=== PATIENT | male | born 1995 | race Two or more races ===

== ENCOUNTER 2020-10-15 23:29 | Emergency (ER) | payer OTHER ==
[~2020-10-15] VITALS: Ht 180.3 cm; Wt 117.9 kg
[2020-10-15 23:33] VITALS: BP 163/77
[2020-10-16] MEDS ORDERED: IBUPROFEN 800 MG TAB PO ONE (02:15)
== END 2020-10-16 02:24 | disposition home or self-care (01) ==
LOC: ER 23:30
DX: S83.92XD Sprain of unspecified site of left knee, subsequent encounter (principal); X58.XXXD Exposure to other specified factors, subsequent encounter
CPT/HCPCS: 29505; 73562

== ENCOUNTER 2020-10-25 17:07 | Emergency (ER) | payer MEDICAID, OTHER ==
[~2020-10-25] VITALS: Ht 180.3 cm; Wt 122.5 kg
[2020-10-25 17:19] VITALS: BP 127/86
== END 2020-10-25 19:41 ==
LOC: ER 17:07
DX: S61.011A Laceration without foreign body of right thumb without damage to nail, initial encounter (principal); F17.210 Nicotine dependence, cigarettes, uncomplicated; F12.10 Cannabis abuse, uncomplicated; Z53.29 Procedure and treatment not carried out because of patient's decision for other reasons; W22.8XXA Striking against or struck by other objects, initial encounter; Y93.89 Activity, other specified; Y92.89 Other specified places as the place of occurrence of the external cause; Y99.8 Other external cause status

== ENCOUNTER 2024-09-17 08:56 | Emergency (ER) | payer MEDICAID, OTHER ==
[~2024-09-17] VITALS: Ht 180.3 cm; Wt 129.0 kg
[2024-09-17 09:40] VITALS: PULSE 94; RESP 16; O2SAT 95
--- NOTE | 2024-09-17 10:07 | ED.PDOC ---
Musculoskeletal HPI Comments 29 year old male presents to the ED with chief complaint of left ankle pain. Patient reports that he has been experiencing left sided ankle pain and swelling after twisting his ankle unloading things in his home last night. Patient relays that he is unable to bear weight onto his foot and needs to utilize crutches. Patient denies any numbness, weakness, or further injuries. Chief Complaint: Lower Extremity Time Seen by MD: 10:05 Primary Care Provider: NONE Reviewed Notes: Nurses Notes, Medications, Allergies Allergies: Coded Allergies: Penicillins (Verified Allergy, Unknown, 10/15/20) Home Meds Active Scripts Ibuprofen Micronized (MOTRIN TABLET) 600 Mg Tb, 600 MG PO TID PRN for 5 Days, #15 TAB *Black box warning-NSAIDS can increase risk of CT & hypertension, GI irritation, ulceration, bleed, perferation. Do not use post cardiac surgery. Use short duration/lowest effective dose. Prov:VEL GE MD 09/17/24 Information Source: Patient Mode of Arrival: Ambulatory Location: Left Extremity Location: Ankle Timing: Hours Prehospital treatment: None Severity: Moderate Able to Move Extremity: Yes Bear Weight: No Pain: Moderate Mechanism: Twisting Circumstances: Accident Onset of Symptoms: After Trauma Symptoms: Swelling, Pain DVT Risk Factors: NONE Last Tetanus: Unknown Past Medical History PAST MEDICAL HISTORY: Denies Surgical History: Denies all surgeries Family History Family History: Reviewed,noncontributory to illness, Unknown Social History Smoker: Cigarettes, Less Than 1 Pack/Day Alcohol: Occasionally Drugs: Marijuana Lives In: Home Constitutional: denies: chills, diaphoresis, fatigue, fever, malaise, sweats, weakness, others EENTM: denies: blurred vision, double vision, ear bleeding, ear discharge, ear drainage, ear pain, ear ringing, eye pain, eye redness, hearing loss, mouth pain, mouth swelling, nasal discharge, nose bleeding, nose congestion, nose pain, photophobia, tearing, throat pain, throat swelling, voice changes, others Respiratory: denies: cough, hemoptysis, orthopnea, SOB at rest, shortness of breath, SOB with excertion, stridor, wheezing, others Cardiovascular: denies: chest pain, dizzy spells, diaphoresis, Dyspnea on exertion, edema, irregular heart beat, left arm pain, lightheadedness, p alpitations, PND, syncope, others Gastrointestinal: denies: abdomen distended, abdominal pain, blood streaked bowels, constipated, diarrhea, dysphagia, difficulty swallowing, hematemesis, melena, nausea, poor appetite, poor fluid intake, rectal bleeding, rectal pain, vomiting, others Genitourinary: denies: burning, dysuria, flank pain, frequency, hematuria, incontinence, penile discharge, penile sore, pain, testicle pain, testicle swelling, urgency, others Neurological: denies: dizziness, fainting, headache, left sided numbness, left sided weakness, numbness, paresthesia, pre-existing deficit, right sided numbness, right sided weakness, seizure, speech problems, tingling, tremors, weakness, others Musculoskeletal: reports: others (Left ankle pain and swelling); denies: back pain, gout, joint pain, joint swelling, muscle pain, muscle stiffness, neck pain Integumetry: denies: bruises, change in color, change in hair/nails, dryness, laceration, lesions, lumps, rash, wounds, others Allergic/Immunocompromised: denies: Difficulty Healing, Frequent Infections, Hives, Itching, others Hematologic/Lymphatic: denies: anemia, blood clots, easy bleeding, easy bruising, swollen glands, others Endocrine: denies: excessive hunger, excessive sweating, excessive thirst, excessive urination, flushing, intolerance to cold, intolerance to heat, unexplained weight gain, unexplained weight loss, others Psychiatric: denies: anxiety, bipolar disorder, depression, hopeless, panic disorder, schizophrenia, sleepless, suicidal, others All Other Systems: Reviewed and Negative Physical Exam General Appearance: Moderate Distress, Normal HEENT: Normal ENT Inspection, PERRL/EOMI Neck: Full Range of Motion, Non-Tender, Normal, Normal Inspection Respiratory: Chest Non-Tender, Lungs Clear, No Accessory Muscle Use, No Respiratory Distress, Normal Breath Sounds Cardiovascular: No Edema, No JVD, No Murmur, No Gallop, Normal Peripheral Pulses, Regular Rate/Rhythm Breast Exam: Deferred Gastrointestinal: No Organomegaly, Non Tender, No Pulsatile Mass, Normal Bowel Sounds, Soft Genitalia: Deferred Pelvic: Deferred Rectal: Deferred Extremities: No calf tenderness, Normal capillary refill, Non-tender, No pedal edema, Swelling (Left ankle) Musculoskeletal : Apperance: Normal Neurologic: Alert, director of vital statistics II-XII nml as Tested, No Motor Deficits, Normal Affect, Normal Mood, No Sensory Deficits Cerebellar Function: NOT DONE Reflexes: NOT DONE Skin: Dry, Normal Color, Warm Peripheral Pulses: 3+ Radial (R), 3+ Radial (L) Lymphatic: No Adenopathy Was a procedure done? Was a procedure done?: No Differential Diagnosis EXT Differential Diagnosis: Fracture, Sprain, Dislocation, Contusion, Strain X-Ray, Labs, Meds, VS Vital Signs Date Time Temp Pulse Resp B/P (MAP) Pulse Ox O2 Delivery O2 Flow Rate FiO2 09/17/24 09:40 94 16 95 Room Air* 0 21 09/17/24 09:40 94 18 137/76 (96) 95 09/17/24 09:06 97.5 102 15 146/86 (106) 97 97.5 Current Medications Medications (Trade) Dose Ordered Sig/Reanna Route Start Time Stop Time Status Last Admin Acetaminophen/ Hydrocodone Bitart (Spencer 10/325MG Tab) 1 tab ONCE ONCE PO 09/17/24 10:30 09/17/24 10:31 DC 09/17/24 10:34 Left Ankle XR: 1. No acute fracture or dislocation of the left ankle. The mortise is intact. 2. Diffuse soft tissue swelling about the left ankle. 3. Mild tibiotalar osteoarthritis, plantar calcaneal bone spur and Achilles insertion enthesophyte incidentally noted. Patient alert. On examination there is swelling of the left ankle. He has good pulses. Vitals stable. Answering questions. Good skin color. X-ray does not show any acute process. Was given Spencer. Was given prescription of Motrin. Bird wrap. Reviewed his history. He has crutches. Explained to the patient. Placed in Bird wrap. Was told to follow up with his primary care physician. Was told to come back if there is any problem. Time of 1ST Reevaluation: 11:05 Reevaluation 1ST: Unchanged Patient Education/Counseling: Diagnosis, Treatment Family Education/Counseling: No Family Present Additional Information Previous visit documents reviewed: 10/25/20 for fpc check The following tests were ordered, and results were reviewed by me: Additional Information was gathered from interviewing the following independent historians: I reviewed and agreed with the following test results read by other providers: I discussed treatment and results with medical personnel and: Patient Comprehensive systems review obtained and negative except for what is stated in the HPI. Departure 1 Departure Time of Disposition: 12:16 Impression: Primary Impression: Ankle sprain Qualified Codes: S93.402A - Sprain of unspecified ligament of left ankle, initial encounter Additional Impression: Osteoarthritis Qualified Codes: M19.072 - Primary osteoarthritis, left ankle and foot Disposition: HOME / SELF CARE / HOMELESS Condition: Good e-Prescriptions Ibuprofen Micronized (MOTRIN TABLET) 600 Mg Tb 600 MG PO TID PRN for 5 Days, #15 TAB *Black box warning-NSAIDS can increase risk of CT & hypertension, GI irritation, ulceration, bleed, perferation. Do not use post cardiac surgery. Use short duration/lowest effective dose. Prov: VEL GE MD 09/17/24 Discharged With: Self Critical Care Note Critical Care Time?: No Stability Stability form required: No Heart Score Heart Score: Heart Score Response (Comments) Value History N/A 0 EKG N/A 0 Age N/A 0 Risk Factors N/A 0 Troponin N/A 0 Total 0 I personally scribed for VEL GE MD ([email or web address]) on 09/17/24 at 10:07. Electronically submitted by Corby Vale ([email or web address]). I personally scribed for VEL GE MD ([email or web address]) on 09/17/24 at 12:14. Electronically submitted by Corby Vale ([email or web address]). VEL GE MD Sep 17, 2024 10:07
[2024-09-17] MEDS: HYDROcodone-ACET 10/325MG TAB PO ONE (10:34)
--- NOTE | 2024-09-17 11:37 | DVH ---
CLINICAL INDICATION: fall 29-year-old male with left ankle pain after fall. TECHNIQUE: 3 views of the left ankle were performed. XY L ANKLE 3 VIEW Comparison: None FINDINGS/IMPRESSION: : 1. No acute fracture or dislocation of the left ankle. The mortise is intact. 2. Diffuse soft tissue swelling about the left ankle. 3. Mild tibiotalar osteoarthritis, plantar calcaneal bone spur and Achilles insertion enthesophyte in cidentally noted.
[2024-09-17] MEDS ORDERED: IBU600T PO (12:17)
[2024-09-17 12:25] VITALS: BP 120/76; PULSE 75; RESP 18; TEMP 97.5; O2SAT 95
== END 2024-09-17 12:29 | disposition home or self-care (01) ==
LOC: ER 08:56
DX: S93.402A Sprain of unspecified ligament of left ankle, initial encounter (principal); M19.072 Primary osteoarthritis, left ankle and foot; F17.210 Nicotine dependence, cigarettes, uncomplicated; Z88.0 Allergy status to penicillin; X50.1XXA Overexertion from prolonged static or awkward postures, initial encounter; Y93.89 Activity, other specified; Y92.89 Other specified places as the place of occurrence of the external cause; Y99.8 Other external cause status
CPT/HCPCS: 73610